=== PATIENT | male | born 1960 | race Caucasian/White ===

== ENCOUNTER 2023-05-16 17:39 | Emergency (ER) | payer BC ==
[2023-05-16] MEDS ORDERED: Bupivacaine PF 0.5% 30 ML VIAL ONE (18:08)
== END 2023-05-16 19:05 | disposition home or self-care (01) ==
LOC: ERS 17:39
DX: S92.491B Other fracture of right great toe, initial encounter for open fracture (principal); W20.8XXA Other cause of strike by thrown, projected or falling object, initial encounter
CPT/HCPCS: 11750; J0665

== ENCOUNTER 2025-01-30 08:42 | Outpatient (CLI) | payer OTHER | END 2025-01-30 08:43 | disposition home or self-care (01) | LOC: BICMRI 08:42 | PROVIDERS: ATTEND Physician Assistant | DX: M54.41 Lumbago with sciatica, right side (principal); M47.816 Spondylosis without myelopathy or radiculopathy, lumbar region; M48.061 Spinal stenosis, lumbar region without neurogenic claudication | CPT/HCPCS: 72148 ==